=== PATIENT | male | born 1965 | race Caucasian/White ===

== ENCOUNTER 2018-05-20 00:10 | Inpatient (IN) ==
[2018-05-20 04:24] LABS: Basophils # 0.1 10*3/uL (0.0-0.2); Basophils % 0.5 % (0.0-0.8); Eosinophils # 0.2 10*3/uL (0.0-0.87); Eosinophils % 1.6 % (0.00-10.9); Hemoglobin 16.6 GM/DL (14.0-18.0); Immature Granulocytes % 0.6 %; Immature Granulocytes Absolute 0.07 #; Lymphocytes # 1.9 10*3/uL (1.4-4.0); Lymphocytes % 17.1 % (21.2-54.2); Mean Corpuscular HGB Conc 37.7 GM/DL (32-36); Mean Corpuscular Hemoglobin 32 PG (27-34); Mean Corpuscular Volume 85.8 FL (87-102); Mean Platelet Volume 12.9 FL (9.6-12.0); Monocytes # 0.7 10*3/uL (0.11-0.8); Monocytes % 6.5 % (1.7-12.7); NRBC # 0.08 10*3/uL; Neutrophils # 8.1 10*3/uL (1.4-7.4); Neutrophils % 73.7 % (38.7-73.9); Platelet Count 215 T/CUMM (130-400); Red Blood Count 5.13 MC/CUMM (3.8-5.5); Red Cell Distribution Width 14.3 % (9.3-17.3)
[2018-05-20] MEDS ORDERED: SODIUM CHLORIDE 0.9% 1,000 ML IV STA (04:38)
[2018-05-20] MEDS ORDERED: ONDANSETRON 4 MG/2 ML VIAL IV STA (04:39)
[2018-05-20] MEDS ORDERED: HYDROmorphone 2 MG/1 ML VIAL IV STA ×2 (04:39→08:28)
[2018-05-20 05:22] LABS: Anisocytosis 1+; Band Neutrophils 2 % (0-10); Eosinophils 2 % (0-10); Lymphocytes 18 % (20-55); Platelet Estimate Adequate; Segmented Neutrophils 74 % (50-85); Total Cells Counted 100
[2018-05-20 07:14] LABS: Bilirubin,Total < 0.39 MG/DL (0.2-1.0); Glucose 320 MG/DL (74-106); Potassium 4.3 MMOL/L (3.5-5.1); Sodium 130 MMOL/L (136-145)
[2018-05-20 07:15] LABS: Alanine Aminotransferase 89 U/L (16-61)
[2018-05-20 07:17] LABS: Alkaline Phosphatase 47 U/L (45-117)
[2018-05-20 07:44] LABS: Albumin 3.5 G/DL (3.4-5.0); Aspartate Amino Transferase 52 U/L (0-37); Blood Urea Nitrogen 12 MG/DL (7-18); Calcium 8.1 MG/DL (8.5-10.1); Osmolality,Calculated 271.8 MOS/KG (273-304)
[2018-05-20 07:46] LABS: Total Protein 7.2 G/DL (6.4-8.3)
[2018-05-20] MEDS ORDERED: ACETAMINOPHEN 325 MG TABLET PO PRN (08:29)
[2018-05-20] MEDS ORDERED: LACTULOSE 20 GM/30 ML UDCUP PO PRN (08:29)
[2018-05-20] MEDS ORDERED: DOCUSATE SODIUM 100 MG CAPSULE PO PRN (08:29)
[2018-05-20 08:56] LABS: Thyroid Stimulating Hormone 2.55 uIU/ml (0.358-3.74)
[2018-05-20] MEDS: ONDANSETRON 4 MG/2 ML VIAL IV PRN ×4 (09:06→23:47)
[2018-05-20] MEDS: HYDROmorphone 2 MG/1 ML VIAL IV PRN ×3 (09:09→23:48)
[2018-05-20 09:37] LABS: VLDL CHOLESTEROL 1177.6 MG/DL
[2018-05-20] MEDS: SODIUM CHLORIDE 0.9% 1,000 ML IV SCH ×2 (09:43→17:06)
[2018-05-20 09:57] LABS: Barbiturates Screen,Urine Negative (Negative); Benzodiazepines Screen,Urine Negative (Negative); Cannabinoid Screen,Urine Negative (Negative); Opiate Screen,Urine Positive (Negative); Phencyclidine Screen,Urine Negative (Negative)
[2018-05-20 10:08] LABS: Apearance,Urine CLEAR (Clear); Bilirubin,Urine Negative (Negative); Blood, Urine Negative (Negative); Glucose,Urine (UA) >=500 mg/dL (Negative); Ketones,Urine Negative (Negative); Mucus,Urine Few /LPF (Occasional); Nitrite,Urine Negative (Negative); Protein,Urine >=500 MG/DL; RBC,Urine 2 /HPF (0-4); Squamous Epithelial Cell,Urine Occasional /HPF (0-10); Urine Color Yellow (Yellow); Urine Specific Gravity 1.029 (1.001-1.035); Urine Urobilinogen < 2.0 EU/DL (0.2-1.0); WBC,Urine 1 /HPF (0-6)
[2018-05-20] MEDS: PANTOPRAZOLE 40 MG VIAL IV SCH (10:08)
[2018-05-20] MEDS: ENOXAPARIN 40 MG/0.4 ML SYRINGE SUBCUT SCH (10:10)
[2018-05-20] MEDS ORDERED: DEXTROSE 50% 25 GM/50 ML VIAL IV PRN (11:27)
[2018-05-20] MEDS ORDERED: GLUCAGON 1 MG VIAL IM PRN (11:27)
[2018-05-20 11:47] LABS: Hepatitis A Ab IgM Result Negative (Negative); Hepatitis B Surface Ag Quant 0.42 Index; Hepatitis B Surface Ag Result Negative (Negative); Hepatitis C Virus Ab Quant 0.02 Index; Hepatitis C Virus Ab Result Negative (Negative)
[2018-05-20 11:54] LABS: Hepatitis B Core IgM Result Positive (Negative)
[2018-05-20] MEDS: INSULIN LISPRO 100 UNIT/ML SUBCUT SCH ×3 (11:54→20:23)
[2018-05-20] MEDS: FENOFIBRATE 160 MG TABLET PO SCH (12:47)
[2018-05-20] MEDS: OMEGA 3 ACID ETHYL ESTERS 1 GM CAPSULE PO SCH ×2 (12:47→20:25)
[2018-05-20 13:18] LABS: Risk Ratio 12.08
[2018-05-20] MEDS: PROMETHAZINE INJ 25 MG in SODIUM CHLORIDE 0.9% 50 ML IV PRN (17:06)
[2018-05-20] MEDS: SIMVASTATIN 10 MG TABLET PO SCH (20:25)
[2018-05-21] MEDS: SODIUM CHLORIDE 0.9% 1,000 ML IV SCH ×3 (01:40→18:35)
[2018-05-21 05:40] LABS: Basophils % 0.4 % (0.0-0.8); Eosinophils # 0.1 10*3/uL (0.0-0.87); Eosinophils % 1.7 % (0.00-10.9); Hematocrit 42.5 VOL% (42.0-52.0); Hemoglobin 14.6 GM/DL (14.0-18.0); Immature Granulocytes % 0.3 %; Immature Granulocytes Absolute 0.02 #; Lymphocytes # 1.9 10*3/uL (1.4-4.0); Mean Corpuscular HGB Conc 34.4 GM/DL (32-36); Mean Corpuscular Hemoglobin 31 PG (27-34); Mean Corpuscular Volume 89.5 FL (87-102); Mean Platelet Volume 10.9 FL (9.6-12.0); Monocytes # 0.6 10*3/uL (0.11-0.8); Monocytes % 7.8 % (1.7-12.7); Neutrophils # 4.9 10*3/uL (1.4-7.4); Neutrophils % 64.8 % (38.7-73.9); Platelet Count 138 T/CUMM (130-400); Red Blood Count 4.75 MC/CUMM (3.8-5.5); Red Cell Distribution Width 14.2 % (9.3-17.3); White Blood Count 7.6 T/CUMM (4-12)
[2018-05-21 06:17] LABS: Osmolality,Calculated 278.7 MOS/KG (273-304); Potassium 3.4 MMOL/L (3.5-5.1)
[2018-05-21] MEDS ORDERED: POTASSIUM CHLORIDE 20 MEQ TABLET PO ONE (07:48)
[2018-05-21] MEDS: OMEGA 3 ACID ETHYL ESTERS 1 GM CAPSULE PO SCH ×2 (08:43→20:50)
[2018-05-21] MEDS: FENOFIBRATE 160 MG TABLET PO SCH (08:43)
[2018-05-21] MEDS: ENOXAPARIN 40 MG/0.4 ML SYRINGE SUBCUT SCH (08:44)
[2018-05-21] MEDS: ONDANSETRON 4 MG/2 ML VIAL IV PRN ×3 (08:44→20:51)
[2018-05-21] MEDS: HYDROmorphone 2 MG/1 ML VIAL IV PRN ×3 (08:45→20:51)
[2018-05-21] MEDS: PANTOPRAZOLE 40 MG VIAL IV SCH (08:51)
[2018-05-21] MEDS: INSULIN LISPRO 100 UNIT/ML SUBCUT SCH ×4 (09:42→20:50)
[2018-05-21] MEDS ORDERED: DEXTROSE 50% 25 GM/50 ML SYRINGE IV PRN (09:47)
[2018-05-21] MEDS ORDERED: GLUCAGON 1 MG VIAL IM PRN (09:47)
[2018-05-21] MEDS: SIMVASTATIN 10 MG TABLET PO SCH (20:50)
[2018-05-22] MEDS: SODIUM CHLORIDE 0.9% 1,000 ML IV SCH ×3 (02:33→19:52)
[2018-05-22] MEDS: ONDANSETRON 4 MG/2 ML VIAL IV PRN ×3 (03:19→18:07)
[2018-05-22] MEDS: HYDROmorphone 2 MG/1 ML VIAL IV PRN ×2 (05:05→09:06)
[2018-05-22 08:30] LABS: Risk Ratio 9.38; VLDL CHOLESTEROL 177.8 MG/DL
[2018-05-22] MEDS: ENOXAPARIN 40 MG/0.4 ML SYRINGE SUBCUT SCH (09:05)
[2018-05-22] MEDS: PANTOPRAZOLE 40 MG VIAL IV SCH (09:06)
[2018-05-22] MEDS: OMEGA 3 ACID ETHYL ESTERS 1 GM CAPSULE PO SCH (09:07)
[2018-05-22] MEDS: INSULIN LISPRO 100 UNIT/ML SUBCUT SCH ×4 (09:07→22:35)
[2018-05-22] MEDS: GEMFIBROZIL 600 MG TABLET PO SCH ×2 (09:07→16:45)
[2018-05-22] MEDS: PROMETHAZINE INJ 25 MG in SODIUM CHLORIDE 0.9% 50 ML IV PRN ×2 (12:06→19:52)
[2018-05-22] MEDS ORDERED: KETOROLAC 15 MG/1 ML VIAL IV PRN (13:01)
[2018-05-22] MEDS: SIMVASTATIN 10 MG TABLET PO SCH (16:45)
[2018-05-22] MEDS: metFORMIN 500 MG TABLET PO SCH (16:45)
[2018-05-22 19:51] LABS: Hepatitis B Surface Ab Result Positive
[2018-05-23] MEDS: SODIUM CHLORIDE 0.9% 1,000 ML IV SCH ×3 (03:00→18:10)
[2018-05-23] MEDS: ONDANSETRON 4 MG/2 ML VIAL IV PRN ×3 (06:28→23:04)
[2018-05-23] MEDS: PANTOPRAZOLE 40 MG VIAL IV SCH (10:09)
[2018-05-23] MEDS: HYDROmorphone 2 MG/1 ML VIAL IV PRN ×3 (10:09→23:05)
[2018-05-23] MEDS: INSULIN LISPRO 100 UNIT/ML SUBCUT SCH ×4 (10:10→23:10)
[2018-05-23] MEDS: metFORMIN 500 MG TABLET PO SCH ×2 (10:10→17:16)
[2018-05-23] MEDS: ENOXAPARIN 40 MG/0.4 ML SYRINGE SUBCUT SCH (10:10)
[2018-05-23] MEDS: GEMFIBROZIL 600 MG TABLET PO SCH ×2 (10:10→17:16)
[2018-05-23] MEDS: PROMETHAZINE INJ 25 MG in SODIUM CHLORIDE 0.9% 50 ML IV PRN (14:25)
[2018-05-23] MEDS: SIMVASTATIN 10 MG TABLET PO SCH (17:16)
[2018-05-24] MEDS: SODIUM CHLORIDE 0.9% 1,000 ML IV SCH ×3 (01:34→18:31)
[2018-05-24 05:55] LABS: Calcium 7.7 MG/DL (8.5-10.1); Osmolality,Calculated 280.3 MOS/KG (273-304); Potassium 3.5 MMOL/L (3.5-5.1)
[2018-05-24] MEDS: ONDANSETRON 4 MG/2 ML VIAL IV PRN (09:00)
[2018-05-24] MEDS: HYDROmorphone 2 MG/1 ML VIAL IV PRN ×3 (09:01→20:56)
[2018-05-24] MEDS: PANTOPRAZOLE 40 MG VIAL IV SCH (09:02)
[2018-05-24] MEDS: PROMETHAZINE INJ 25 MG in SODIUM CHLORIDE 0.9% 50 ML IV PRN ×2 (10:13→18:29)
[2018-05-24] MEDS: INSULIN LISPRO 100 UNIT/ML SUBCUT SCH ×4 (10:29→20:48)
[2018-05-24] MEDS: metFORMIN 500 MG TABLET PO SCH ×2 (13:12→18:31)
[2018-05-24] MEDS: GEMFIBROZIL 600 MG TABLET PO SCH ×2 (13:12→18:29)
[2018-05-24] MEDS: ENOXAPARIN 40 MG/0.4 ML SYRINGE SUBCUT SCH (18:28)
[2018-05-24] MEDS: SIMVASTATIN 10 MG TABLET PO SCH (18:31)
[2018-05-25] MEDS: ONDANSETRON 4 MG/2 ML VIAL IV PRN ×2 (02:36→09:59)
[2018-05-25] MEDS: SODIUM CHLORIDE 0.9% 1,000 ML IV SCH ×4 (02:38→19:44)
[2018-05-25 06:01] LABS: Calcium 8.1 MG/DL (8.5-10.1); Osmolality,Calculated 280.3 MOS/KG (273-304); Potassium 3.4 MMOL/L (3.5-5.1)
[2018-05-25] MEDS: INSULIN LISPRO 100 UNIT/ML SUBCUT SCH ×4 (08:46→20:20)
[2018-05-25] MEDS: metFORMIN 500 MG TABLET PO SCH ×2 (09:54→17:01)
[2018-05-25] MEDS: PANTOPRAZOLE 40 MG VIAL IV SCH (09:54)
[2018-05-25] MEDS: ENOXAPARIN 40 MG/0.4 ML SYRINGE SUBCUT SCH (09:54)
[2018-05-25] MEDS: GEMFIBROZIL 600 MG TABLET PO SCH ×2 (09:54→16:59)
[2018-05-25] MEDS: HYDROmorphone 2 MG/1 ML VIAL IV PRN ×3 (09:58→21:39)
[2018-05-25] MEDS: PROMETHAZINE INJ 25 MG in SODIUM CHLORIDE 0.9% 50 ML IV PRN (12:40)
[2018-05-25] MEDS ORDERED: PROMETHAZINE 25 MG TABLET PO PRN (15:52)
[2018-05-25] MEDS ORDERED: ONDANSETRON ODT 4 MG TABLET PO PRN (15:52)
[2018-05-25] MEDS: SIMVASTATIN 10 MG TABLET PO SCH (16:59)
[2018-05-25] MEDS: PROCHLORPERAZINE 10 MG TABLET PO SCH (20:18)
[2018-05-26] MEDS: HYDROmorphone 2 MG/1 ML VIAL IV PRN ×2 (02:17→08:50)
[2018-05-26] MEDS: SODIUM CHLORIDE 0.9% 1,000 ML IV SCH ×2 (03:16→12:43)
[2018-05-26 04:27] LABS: Basophils % 0.6 % (0.0-0.8); Eosinophils # 0.2 10*3/uL (0.0-0.87); Hematocrit 38.9 VOL% (42.0-52.0); Hemoglobin 13.3 GM/DL (14.0-18.0); Immature Granulocytes % 0.4 %; Immature Granulocytes Absolute 0.02 #; Lymphocytes # 1.9 10*3/uL (1.4-4.0); Lymphocytes % 37.6 % (21.2-54.2); Mean Corpuscular HGB Conc 34.2 GM/DL (32-36); Mean Corpuscular Hemoglobin 30 PG (27-34); Mean Corpuscular Volume 88.8 FL (87-102); Monocytes # 0.4 10*3/uL (0.11-0.8); Monocytes % 8.2 % (1.7-12.7); Neutrophils # 2.4 10*3/uL (1.4-7.4); Neutrophils % 49.2 % (38.7-73.9); Platelet Count 137 T/CUMM (130-400); Red Blood Count 4.38 MC/CUMM (3.8-5.5); Red Cell Distribution Width 13.2 % (9.3-17.3)
[2018-05-26 04:45] LABS: Calcium 8.1 MG/DL (8.5-10.1); Osmolality,Calculated 279.3 MOS/KG (273-304); Potassium 3.5 MMOL/L (3.5-5.1)
[2018-05-26] MEDS: INSULIN LISPRO 100 UNIT/ML SUBCUT SCH ×2 (08:15→12:42)
[2018-05-26] MEDS: PANTOPRAZOLE 40 MG VIAL IV SCH (08:50)
[2018-05-26] MEDS: metFORMIN 500 MG TABLET PO SCH (08:50)
[2018-05-26] MEDS: GEMFIBROZIL 600 MG TABLET PO SCH (08:50)
[2018-05-26] MEDS: PROCHLORPERAZINE 10 MG TABLET PO SCH (08:50)
[2018-05-26] MEDS: ENOXAPARIN 40 MG/0.4 ML SYRINGE SUBCUT SCH (08:52)
[2018-05-26 12:06] VITALS: BP 172/83
[2018-05-31 23:06] LABS: Result Genotype: e3/e3; Result Summary SEE COMMENTS; Specimen WB Whole Blood
== END 2018-05-26 12:37 | disposition home or self-care (01) | DRG 439 ==
LOC: N.EDINP 00:10 → N.ED 00:10 → N.4E 11:22
PROVIDERS: ADMIT Hospitalist; ATTEND Hospitalist